=== PATIENT | male | born 1955 | race Caucasian/White ===

== ENCOUNTER → 2017-11-18 | Outpatient (CLI) | payer MEDICAID ==
[2017-11-18 10:55] LABS: HCT 37.6 % (39.0-53.0); MCH 28.2 pg (25.0-35.0); Mean Platelet Volume 7.6; Platelet Count 248 k/uL (150-450); RBC 4.26 m/uL (4.30-5.90); RDW 13.3 % (11.5-15.5); WBC 8.2 k/uL (3.8-10.6)
[2017-11-18 10:59] LABS: MCV 88.3 fL (80.0-100.0)
[2017-11-18 11:19] LABS: Potassium 4.7 mmol/L (3.5-5.1)
== END | disposition home or self-care (01) ==
LOC: LABPAT 09:30
PROVIDERS: ATTEND Internal Medicine Cardiovascular Disease
DX: Z01.812 Encounter for preprocedural laboratory examination (principal); I10 Essential (primary) hypertension; E78.5 Hyperlipidemia, unspecified; R07.89 Other chest pain
CPT/HCPCS: 36415; 80051; 82565; 84520; 85027

== ENCOUNTER 2017-11-20 07:36 | Day surgery (SDC) | payer MEDICAID ==
[2017-11-16 11:47] VITALS: BMI 39.9
[~2017-11-20 07:36] MED LIST: ALPRAZolam 0.25 MG TAB PO PRN; ASPIRIN 325 MG TAB PO STA; ATORVASTATIN 80 MG TAB PO STA; NITROGLYCERIN SL TABS 0.4 MG TAB SUBLINGUAL PRN; SODIUM CHLORIDE 0.9% 1,000 ML in EMPTY BAG 1 BAG IV ONE
[2017-11-20 08:12] LABS: Glucose,Whole Blood 197 mg/dL (75-99)
[2017-11-20] MEDS ORDERED: METOPROLOL TARTRATE 25 MG TAB PO STA (08:18)
[2017-11-20] MEDS ORDERED: ISOSORBIDE MONONITRATE ER 15 MG TAB PO STA (08:18)
[2017-11-20] MEDS ORDERED: LOSARTAN-HCTZ 50-12.5 MG 1 EACH TAB PO ONE (09:00)
[2017-11-20] MEDS ORDERED: LIDOCAINE 1% INJ 10MG/ML (20 ML MDV) ONE (09:07)
[2017-11-20] MEDS ORDERED: fentaNYL (PF) 50 MCG/ML 2 ML AMP ONE (09:07)
[2017-11-20] MEDS ORDERED: MIDAZOLAM 2 MG/2 ML VIAL ONE (09:08)
[2017-11-20] MEDS ORDERED: MIDAZOLAM 2 MG/2 ML VIAL IVP ONE (09:21)
[2017-11-20] MEDS ORDERED: fentaNYL (PF) 50 MCG/ML 2 ML AMP IVP ONE (09:21)
[2017-11-20] MEDS ORDERED: LIDOCAINE 2% INJ 20 MG/ML SQ ONE (09:27)
[2017-11-20] MEDS ORDERED: ENALAPRILAT 1.25 MG/ML 1 ML VIAL ONE (09:43)
[2017-11-20] MEDS ORDERED: amLODIPine 5 MG TAB ONE (09:47)
[2017-11-20] MEDS ORDERED: amLODIPine 5 MG TAB PO ONE (09:50)
[2017-11-20] MEDS ORDERED: ENALAPRILAT 1.25 MG/ML 1 ML VIAL IVP ONE (09:50)
[2017-11-20] MEDS ORDERED: CLOPIDOGREL 75 MG TAB ONE (10:14)
[2017-11-20] MEDS ORDERED: BIVALIRUDIN BOLUS 250 MG/50 ML IV ONE ×2 (10:14)
[2017-11-20] MEDS ORDERED: BIVALIRUDIN 250 MG in SODIUM CHLORIDE 0.9% 50 ML IV ONE ×4 (10:15)
[2017-11-20] MEDS ORDERED: CLOPIDOGREL 75 MG TAB PO ONE ×2 (10:18)
[2017-11-20] MEDS ORDERED: IOPAMIDOL-370 125ML BTL INJ ONE (10:20)
--- NOTE | 2017-11-20 10:23 | CC ---
CARDIAC CATHETERIZATION REPORT INDICATIONS: Non ST-segment elevation OH. PROCEDURE NOTE: After obtaining informed consent, left heart catheterization and coronary angiogram were performed via the right femoral artery using standard Cristal catheters. The patient tolerated the procedure well without any obvious immediate complications. Patient received moderate conscious sedation. Total sedation time was 20 minutes. This is a 62-year-old gentleman who was admitted to hospital 4 weeks ago with GI bleed and had a non ST-segment elevation at that time. He was diagnosed with gastritis following endoscopic evaluation. My associate, Dr. Sullivan, who is his primary integration architect advised him to undergo cardiac catheterization. The patient is currently on aspirin and is tolerating it well. FINDINGS: 1. HEMODYNAMICS: Left ventricular end-diastolic pressure is 8 mm. There is no significant gradient across the aortic valve. 2. LEFT VENTRICULOGRAM. Left ventriculogram is not performed. 3. ANGIOGRAPHIC DATA: 4. Left main coronary artery: Left main coronary artery is a normal-sized vessel and is free of stenosis. Divides into left anterior descending coronary artery and circumflex coronary artery. LAD and its branches are free of significant stenosis. Circumflex coronary artery gives off a large caliber OM branch that shows a 90% stenosis in the ostial portion. Right coronary artery appears chronically occluded in its midportion with extensive collaterals from the left to the right system. CONCLUSIONS: Two-vessel coronary artery disease as described above with a 90% stenosis involving the OM branch. PLAN: I will ask Dr. Garcia the on-call drill sergeant to evaluate the angiographic data and advise on angioplasty of the OM branch. MMODL / IJN: [id number] /
[2017-11-20] MEDS ORDERED: IOPAMIDOL-370 100ML BTL INJ ONE (10:40)
[2017-11-20] MEDS ORDERED: ATROPINE SULFATE 0.1 MG/ML 10ML SYRINGE IV PRN (10:42)
[2017-11-20] MEDS ORDERED: ZOLPIDEM 5 MG TAB PO PRN (10:42)
[2017-11-20] MEDS ORDERED: MAG HYDROX/AL HYDROX/SIMETH 30 ML CUP PO PRN (10:42)
[2017-11-20] MEDS ORDERED: NITROGLYCERIN SL TABS 0.4 MG TAB SUBLINGUAL PRN (10:42)
[2017-11-20] MEDS ORDERED: RX INFO: IV CONTRAST WAS GIVEN 1 EACH MISC MISCELLANE PRN (10:42)
[2017-11-20] MEDS ORDERED: SODIUM CHLORIDE 0.9% 1,000 ML IV SCH (10:45)
[2017-11-20] MEDS: ALPRAZolam 0.5 MG TAB PO PRN ×2 (11:49→23:16)
--- NOTE | 2017-11-20 11:56 | PTCA ---
PERCUTANEOUSTRANS CORORONARY ANGIOGRAPHY Mr. Crane is a 62-year-old male with known history of hypertension, hyperlipidemia, diabetes mellitus, who presented 2 months ago with a non ST-segment elevation myocardial infarction, anemia with GI bleeding. He was evaluated by the GI Service. Subsequently, was seen by Dr. Sullivan and because of his presentation, underwent cardiac catheterization by Dr. Martin and was found to have chronically occluded right coronary artery with critical stenosis involving the second obtuse marginal branch. In view of that, recommendation was made regarding angioplasty and stenting. The procedures, risks, and complications were discussed with the patient who is in full understanding and agreement. PROCEDURE: A 6-Persian FR4 guiding catheter was introduced into system after cannulating the left main, a 0.014 advanced medium weight J-wire was advanced across the lesion, positioned distally. Then a 2.5 x 12 mm Trek balloon was advanced and one inflation at 10 atmospheres was done. Following that, the balloon was removed and a 2.75 x 50 mm Xience CR stent was deployed, post dilated at 16 atmospheres. After the last inflation, after appropriate wait, the balloon and the guidewire were withdrawn back in the guiding catheter. Images were obtained and repeated. Those images reveal stable successful stenting. At that point, the guiding catheter, the balloon and the guidewire were removed. The sheath was removed. Hemostasis was obtained with deployment of an Angio-Seal. There was no immediate complication. Patient is returned to his room in stable condition. Of note, the patient had no chest discomfort or significant EKG changes with the inflation. He received Angiomax per protocol as well as oral loading dose of clopidogrel. FINDING: Successful stenting of the second obtuse marginal branch with reduction of stenosis from 95% to 0%. RECOMMENDATION: Patient will be continued on aspirin, Plavix, beta biju, statin. The importance of dual antiplatelet treatment were discussed with the patient and his family who are in full understanding and agreement. Duration of the procedure is 20 minutes. MMODL / IJN: [id number] /
--- NOTE | 2017-11-20 11:59 | LTR ---
DATE OF SERVICE: 11/20/2017 RE: Rafy Crane Dear Dr. Oropeza; I had the pleasure to perform coronary angioplasty and stenting on Mr. Crane at [facility] on November 20, 2017 and a full copy of the procedure note will be forwarded to you. In brief, he underwent successful stenting of his second obtuse marginal branch using a drug-eluting stent. I am hopeful that this procedure will stabilize his status. I would recommend continue on the aggressive risk modification with dual antiplatelet treatment without interruption for at least 1 year. Thank you again for allowing me to participate in this patient's care. Please feel free to call for any questions. Sincerely yours, MD ROS Hoskins / CARLOS EDUARDON: [id number] /
[2017-11-20] MEDS: METOPROLOL TARTRATE 25 MG TAB PO SCH (19:37)
[2017-11-20] MEDS ORDERED: ATORVASTATIN 80 MG TAB PO SCH (21:00)
[2017-11-20] MEDS ORDERED: INSULIN DETEMIR 100 UNIT/ML 10 ML VIAL SQ SCH (21:00)
[2017-11-20 21:35] LABS: Glucose,Whole Blood 207 mg/dL (75-99)
[2017-11-21 01:49] LABS: Potassium 4.3 mmol/L (3.5-5.1)
[2017-11-21 06:16] LABS: Glucose,Whole Blood 131 mg/dL (75-99)
[2017-11-21 06:50] LABS: Calcium 8.8 mg/dL (8.4-10.2); Potassium 4.1 mmol/L (3.5-5.1)
[2017-11-21 06:59] VITALS: RESP 18
[2017-11-21 07:28] VITALS: BP 141/76; PULSE 72; TEMP 98.6
[2017-11-21] MEDS ORDERED: PANTOPRAZOLE 40 MG TABLET PO SCH (07:30)
[2017-11-21] MEDS: METOPROLOL TARTRATE 25 MG TAB PO SCH (07:31)
[2017-11-21] MEDS ORDERED: LOSARTAN-HCTZ 50-12.5 MG 1 EACH TAB PO SCH (09:00)
[2017-11-21] MEDS ORDERED: ISOSORBIDE MONONITRATE ER 15 MG TAB PO SCH (09:00)
[2017-11-21] MEDS ORDERED: ASPIRIN 81 MG PO SCH (09:00)
[2017-11-21] MEDS ORDERED: CLOPIDOGREL 75 MG TAB PO SCH (09:00)
--- NOTE | 2017-11-21 09:19 | P.PN ---
Subjective Progress Note Date: 11/21/17 Discharge note This is a pleasant 62-year-old gentleman who was admitted to the hospital 4 weeks ago with a GI bleed and had a non-ST elevation myocardial infarction at that time. He was diagnosed with gastritis all an EGD evaluation. He follows with Dr. Sullivan in the office. He underwent a cardiac catheterization yesterday by Dr. Martin which revealed two-vessel coronary artery disease with a 90% stenosis involving the OM branch. Subsequent to that patient underwent angioplasty and stenting of the OM by Dr. Garcia yesterday. The patient was seen and examined this morning, feels well, denies any chest pain or difficulty in breathing. He has been up ambulating in the hallway this morning without any difficulty. It was noted through the night that he had 1 run of nonsustained ventricular tachycardia. Potassium level this morning is 4.1, BUN 15, creatinine 1.0. We will obtain a magnesium level as well. Patient is currently on aspirin 81 mg daily, Lipitor 80 mg daily, Plavix 75 mg daily, insulin, Imdur 15 mg daily, losartan 50/12-1/2 mg daily, metoprolol 25 mg one tablet by mouth twice a day. Blood pressure this morning 140/70 with a heart rate in the 70s prior to medication administration. Objective - Vital Signs Vital signs: Vital Signs Temp 98.6 F 11/21/17 07:27 Pulse 72 11/21/17 07:27 Resp 18 11/21/17 07:27 BP 141/76 11/21/17 07:27 Pulse Ox 95 11/21/17 07:27 Intake & Output 11/20/17 11/21/17 11/21/17 18:59 06:59 18:59 Intake Total 274 240 Output Total 300 Balance 274 -60 Weight 122.47 kg 122.3 kg Intake: IV 274 Oral 240 Output: Urine 300 Other: Voiding Method Toilet Toilet Urinal # Voids 1 - Exam PHYSICAL EXAMINATION: GENERAL: 62-year-old gentleman in no acute distress at the time of my examination HEENT: Head is atraumatic, normocephalic. Pupils equal, round. Sclera anicteric. Conjunctiva are clear. Mucous membranes of the mouth are moist. Neck is supple. There is no elevated jugular venous pressure. No carotid bruit is heard. HEART EXAMINATION: Heart S1, S2 normal. No murmur or gallop heard. CHEST EXAMINATION: Lungs are clear to auscultation and precussion. No chest wall tenderness is noted on palpation or with deep breathing. ABDOMEN: Soft, obese, nontender. Bowel sounds are heard. No organomegaly noted. Right groin soft, no evidence of any hematoma. EXTREMITIES: 2+ peripheral pulses with no evidence of peripheral edema and no calf tenderness noted. NEUROLOGIC patient is awake, alert and oriented X3. . - Labs CBC & Chem 7: 11/21/17 06:00 Labs: Abnormal Lab Results - Last 24 Hours (Table) 11/20/17 11/21/17 11/21/17 Range/Units 21:33 01:15 06:00 Chloride 108 H (98-107) mmol/L Glucose 150 H 113 H (74-99) mg/dL POC Glucose (mg/dL) 207 H (75-99) mg/dL 11/21/17 Range/Units 06:15 Chloride (98-107) mmol/L Glucose (74-99) mg/dL POC Glucose (mg/dL) 131 H (75-99) mg/dL Assessment and Plan Plan: Assessment and plan #1 status post angioplasty and stenting of the OM #2 recent non-Q-wave myocardial infarction and GI bleeding. GI workup suggested gastritis. #3 hyperlipidemia #4 hypertension #5 diabetes Plan Patient was noted to have 1 run of nonsustained ventricular tachycardia to the night, potassium this morning is 4.1 and patient is on beta biju. We will check a magnesium level prior to discharge. He may be able to be discharged home today to follow-up in the office with Dr. Sullivan in one week. Medications as listed above. DNP note has been reviewed, I agree with a documented findings and plan of care. Patient was seen and examined.
== END 2017-11-21 10:54 | disposition home or self-care (01) ==
LOC: CATHCVL 07:36 → 6SEL 10:31 → CATHCVL 11-21 10:54
PROVIDERS: ATTEND Internal Medicine Cardiovascular Disease
DX: I25.10 Atherosclerotic heart disease of native coronary artery without angina pectoris (principal); I10 Essential (primary) hypertension; Z87.891 Personal history of nicotine dependence; E78.5 Hyperlipidemia, unspecified; E11.9 Type 2 diabetes mellitus without complications; Z79.82 Long term (current) use of aspirin; Z79.4 Long term (current) use of insulin; Z79.899 Other long term (current) drug therapy
CPT/HCPCS: 93458; 80048; 83735; C9600; C1769 ×2; C1760; C1887; C1725; C1894; C1874; J2001; J2250; J3010; J0583; Q9967 ×2